=== PATIENT | female | born 1955 | race Caucasian/White ===

== ENCOUNTER 2017-03-19 10:47 | Emergency (ER) | payer BC ==
[2017-03-19 11:07] VITALS: BP 145/74
[2017-03-19] MEDS ORDERED: diphenhydrAMINE 50 MG/ML SDV IM ONE (11:15)
--- NOTE | 2017-03-19 11:16 | EDM.PDOC ---
ED HPI GENERAL MEDICAL PROBLEM - General Chief Complaint: General Stated Complaint: Mouth Numbness, Palpatations Time Seen by Provider: 03/19/17 11:00 Source of Information: Reports: Patient History Limitations: Reports: No Limitations - History of Present Illness INITIAL COMMENTS - FREE TEXT/NARRATIVE: Patient is a 62-year-old female who was seen in the ER not feeling well, states that she was working at [employer] and developed numbness allan orally, tachycardia patient was sent to our ER for evaluation at this time patient states that she went in to see her primary provider with generalized muscle aches not feeling well she was worked up and noted that her AMA was elevated and was started on steroids prednisone 25 mg daily for 5 days this was the only new medication given at this time we feel that this is an allergic reaction to the medication we'll go ahead and stop it. Benadryl 50 IM for symptom control send her home to rest for the next 24-48 hours if things get worse patient is to return to the ER Onset: Today Duration: Hour(s): Location: Reports: Generalized Quality: Reports: Ache, Throbbing Severity: Moderate - Related Data Allergies Allergy/AdvReac Type Severity Reaction Status Date / Time meperidine [From Demerol] Allergy Nausea Verified 03/19/17 10:55 morphine Allergy Anaphylactic Verified 03/19/17 10:55 Shock Home Meds: Home Meds Lisinopril/Hydrochlorothiazide [Lisinopril-Hctz 20-12.5 mg Tab] 0.5 tab PO DAILY 02/11/16 [History] Metoprolol Tartrate [Metoprolol Tartrate] 25 mg PO DAILY 02/11/16 [History] atorvaSTATin Calcium [Atorvastatin Calcium] 10 mg PO DAILY 02/11/16 [History] diphenhydrAMINE [Benadryl] 50 mg IM ONETIME #1 sdv 03/19/17 [Rx] predniSONE [Prednisone] 5 mg PO DAILY 03/19/17 [History] predniSONE [Prednisone] 20 mg PO DAILY 03/19/17 [History] Past Medical History HEENT History: Reports: Impaired Vision Cardiovascular History: Reports: Arrhythmia Gastrointestinal History: Reports: Cholelithiasis, Other (See Below) Other Gastrointestinal History: States that she has had a colonoscopy and the Dr told her that she had a long colon. Genitourinary History: Reports: Other (See Below) Other Genitourinary History: had bladder surgery - Past Surgical History Female Surgical History: Reports: Hysterectomy, Other (See Below) Musculoskeletal Surgical History: Reports: Carpal Tunnel, Other (See Below) Social & Family History - Family History Family Medical History: Unobtainable - Tobacco Use Smoking Status *Q: Never Smoker Second Hand Smoke Exposure: No - Recreational Drug Use Recreational Drug Use: No ED ROS GENERAL - Review of Systems Review Of Systems: See Below Constitutional: Reports: No Symptoms HEENT: Reports: No Symptoms Respiratory: Reports: No Symptoms Cardiovascular: Reports: No Symptoms Endocrine: Reports: No Symptoms GI/Abdominal: Reports: No Symptoms : Reports: No Symptoms Musculoskeletal: Reports: No Symptoms Skin: Reports: No Symptoms Neurological: Reports: No Symptoms Psychiatric: Reports: No Symptoms Hematologic/Lymphatic: Reports: No Symptoms Immunologic: Reports: No Symptoms ED EXAM, GENERAL - Physical Exam Exam: See Below Exam Limited By: No Limitations General Appearance: Alert, WD/WN, No Apparent Distress Ears: Normal External Exam, Normal Canal, Hearing Grossly Normal, Normal TMs Nose: Normal Inspection, Normal Mucosa, No Blood Throat/Mouth: Normal Inspection, Normal Lips, Normal Teeth, Normal Gums, Normal Oropharynx, Normal Voice, No Airway Compromise Head: Atraumatic, Normocephalic Neck: Normal Inspection, Supple, Non-Tender, Full Range of Motion Respiratory/Chest: No Respiratory Distress, Lungs Clear, Normal Breath Sounds, No Accessory Muscle Use, Chest Non-Tender Cardiovascular: Normal Peripheral Pulses, Regular Rate, Rhythm, No Edema, No Gallop, No JVD, No Murmur, No Rub GI/Abdominal: Normal Bowel Sounds, Soft, Non-Tender, No Mass (Female) Exam: Deferred Rectal (Female) Exam: Deferred Back Exam: Normal Inspection, Full Range of Motion, Muscle Spasm Extremities: Normal Inspection, Normal Range of Motion, Non-Tender, No Pedal Edema, Normal Capillary Refill, Arm Pain Neurological: Alert, Oriented, CN II-XII Intact, Normal Cognition, Normal Gait, Normal Reflexes, No Motor/Sensory Deficits Psychiatric: Normal Affect, Normal Mood Skin Exam: Warm, Dry, Intact, Normal Color, No Rash Course - Vital Signs Last Recorded V/S: Last Vital Signs Temp 97.7 F 03/19/17 10:50 Pulse 75 03/19/17 10:50 Resp 17 03/19/17 10:50 BP 145/74 H 03/19/17 10:50 Pulse Ox 100 03/19/17 10:50 - Orders/Labs/Meds Labs: Laboratory Tests 03/19/17 03/19/17 Range/Units 11:20 11:20 WBC 9.4 (4.0-10.2) K/uL RBC 4.44 (3.77-5.09) M/uL Hgb 12.9 (11.7-15.5) g/dL Hct 38.5 (34.0-46.0) % MCV 86.7 (84.0-98.0) fL MCH 29.1 (28.2-33.3) pg MCHC 33.5 (31.7-36.0) g/dL RDW 13.1 (11.2-14.1) % Plt Count 253 (150-350) K/uL Neut % (Auto) 85.0 H (45.0-80.0) % Lymph % (Auto) 11.9 (10.0-50.0) % [place] % (Auto) 2.8 (2.0-14.0) % Eos % (Auto) 0.1 (0.0-5.0) % Baso % (Auto) 0.2 (0.0-2.0) % Neut # (Auto) 7.95 H (1.40-7.00) K/uL Lymph # (Auto) 1.11 (0.50-3.50) K/uL [place] # (Auto) 0.26 (0.00-1.00) K/uL Eos # (Auto) 0.01 (0.00-0.50) K/uL Baso # (Auto) 0.02 (0.00-0.20) K/uL Sodium 139 (136-145) mmol/L Potassium 4.3 (3.5-5.1) mmol/L Chloride 103 (98-107) mmol/L Carbon Dioxide 24.3 (21.0-32.0) mmol/L BUN 19 H (7-18) mg/dL Creatinine 0.62 (0.51-1.17) mg/dL Est Cr Clr Drug Dosing 83.32 mL/min Estimated GFR (MDRD) > 60 mL/min Glucose 133 H (74-106) mg/dL Calcium 9.5 (8.5-10.1) mg/dL C-Reactive Protein < 0.1 (<=0.9) mg/dL Meds: Medications Discontinued Medications Generic Name Dose Route Start Last Admin Trade Name Li PRN Reason Stop Dose Admin Diphenhydramine HCl 50 mg 03/19/17 11:15 03/19/17 11:30 Benadryl IM 03/19/17 11:16 50 mg ONETIME ONE Administration Departure - Departure Time of Disposition: 12:19 Disposition: Home, Self-Care 01 Condition: Good Clinical Impression: Adverse drug reaction - Discharge Information Prescriptions: diphenhydrAMINE [Benadryl] 50 mg IM ONETIME #1 sdv Instructions: Diphenhydramine injection, Drug Allergy Referrals: Mary Mascorro PA-C [Primary Care Provider] - Forms: ED Department Discharge Additional Instructions: You make take over the counter Benadryl 25 mg po every 6 hours for allergic reaction symptoms. You may take the 1st dose around 5:30 pm this evening due to having an injection of Benadryl in the emergency room. If you have any shortness of breath, trouble breathing or swallowing return to ER immediately. Follow-up with your Primary Care Provider for a referral to [facility] as soon as possible. - Problem List & Annotations (1) Adverse drug reaction SNOMED Code(s): 80176505 Code(s): T88.7XXA - UNSP ADVERSE EFFECT OF DRUG OR MEDICAMENT, INIT ENCNTR Status: Acute Current Visit: No (2) Adverse drug reaction to adrenergic neurone blocking agent SNOMED Code(s): 459728433 Code(s): T44.8X5A - ADVERSE EFFECT OF CENTR-ACTING/[id number] AGNT, INIT Status: Acute Current Visit: Yes Annotation/Comment:: At this time prednisone was discontinued Benadryl was given IM can resume Benadryl 50 mg by mouth every 6 hours at home follow-up with primary Qualifiers: Encounter type: initial encounter Qualified Code(s): T44.8X5A - Adverse effect of centrally-acting and dihxzkoihw-fvooab-zqnqhhxr agents, initial encounter - Problem List Review Problem List Initiated/Reviewed/Updated: Yes - Assessment/Plan Assessment:: Adverse drug reaction adverse reaction Plan: Benadryl 50 IM will be given Plan at this time patient will be sent home on Benadryl 25 to 50 mg every 6 hours as needed
[2017-03-19 11:40] LABS: CHLORIDE,CL 103 mmol/L (98-107); SODIUM,NA 139 mmol/L (136-145)
== END 2017-03-19 12:20 | disposition home or self-care (01) ==
LOC: LL.ED 10:47
DX: R20.0 Anesthesia of skin (principal); R00.0 Tachycardia, unspecified; T44.8X5A Adverse effect of centrally-acting and adrenergic-neuron-blocking agents, initial encounter; Z88.5 Allergy status to narcotic agent; Z88.8 Allergy status to other drugs, medicaments and biological substances; Z79.899 Other long term (current) drug therapy
CPT/HCPCS: 36415; 80048; 85025; 86140; 96372; 99283; J1200

== ENCOUNTER 2018-02-05 10:44 | Emergency (ER) | payer BC ==
[2018-02-05] MEDS ORDERED: diphenhydrAMINE 50 MG/ML SDV IVPUSH ONE (10:49)
[2018-02-05] MEDS ORDERED: Sodium Chloride 0.9% 1,000 ML IV SCH (11:00)
[2018-02-05 11:17] LABS: CHLORIDE,CL 104 mmol/L (98-107); SODIUM,NA 139 mmol/L (136-145)
--- NOTE | 2018-02-05 11:26 | EDM.PDOC ---
ED HPI GENERAL MEDICAL PROBLEM - General Chief Complaint: Allergic Reaction Stated Complaint: allergic reaction Time Seen by Provider: 02/05/18 10:45 Source of Information: Reports: Patient, EMS History Limitations: Reports: No Limitations, Respiratory Distress - History of Present Illness INITIAL COMMENTS - FREE TEXT/NARRATIVE: Patient is a 63-year-old who was found lying in her driveway seen by first responders initially O2 sats was 70% on room air bumped up to 99 on nonrebreather paramedics were called to intercept secondary to allergic reaction patient was given EpiPen IV started Benadryl 50 and transfer to [place] on arrival patient was alert saturations were at 100% and responded appropriately to commands. Patient has a long history of allergic reactions especially to narcotics prednisone nonsteroidals Onset: Sudden Duration: Minutes:, Improving Location: Reports: Generalized (Hives) Quality: Reports: Ache Severity: Severe Improves with: Reports: Medication Worsens with: Reports: None Context: Reports: Other (Allergic reaction) - Related Data Allergies Allergy/AdvReac Type Severity Reaction Status Date / Time meperidine [From Demerol] Allergy Nausea Verified 02/05/18 10:46 morphine Allergy Anaphylactic Verified 02/05/18 10:46 Shock NSAIDS (Non-Steroidal Allergy Other Verified 02/05/18 10:46 Anti-Inflamma prednisone Allergy Excitabilit Verified 02/05/18 10:46 y Home Meds: Home Meds Lisinopril/Hydrochlorothiazide [Lisinopril-Hctz 20-12.5 mg Tab] 0.5 tab PO DAILY 02/11/16 [History] Metoprolol Tartrate 25 mg PO DAILY 02/11/16 [History] atorvaSTATin Calcium [Atorvastatin Calcium] 10 mg PO DAILY 02/11/16 [History] diphenhydrAMINE [Benadryl] 50 mg IM ONETIME #1 sdv 03/19/17 [Rx] predniSONE [Prednisone] 5 mg PO DAILY 03/19/17 [History] predniSONE [Prednisone] 20 mg PO DAILY 03/19/17 [History] Past Medical History HEENT History: Reports: Impaired Vision Cardiovascular History: Reports: Arrhythmia Gastrointestinal History: Reports: Cholelithiasis, Other (See Below) Other Gastrointestinal History: States that she has had a colonoscopy and the Dr told her that she had a long colon. Genitourinary History: Reports: Other (See Below) Other Genitourinary History: had bladder surgery - Past Surgical History Female Surgical History: Reports: Hysterectomy, Other (See Below) Musculoskeletal Surgical History: Reports: Carpal Tunnel, Other (See Below) Social & Family History - Family History Family Medical History: Unobtainable ED ROS ALLERGIC REACTION - Review of Systems Review Of Systems: See Below Constitutional: Reports: Weakness, Fatigue HEENT: Reports: No Symptoms Respiratory: Reports: Shortness of Breath, Wheezing Cardiovascular: Reports: No Symptoms Endocrine: Reports: No Symptoms GI/Abdominal: Reports: No Symptoms Musculoskeletal: Reports: No Symptoms Skin: Reports: Pruritis, Other (Hives) Neurological: Reports: No Symptoms Psychiatric: Reports: No Symptoms Hematologic/Lymphatic: Reports: No Symptoms Immunologic: Reports: No Symptoms ED EXAM GENERAL NO PERIP PULSE - Physical Exam Exam: See Below Exam Limited By: No Limitations General Appearance: Alert, WD/WN, No Apparent Distress Ears: Normal External Exam, Normal Canal, Hearing Grossly Normal, Normal TMs Nose: Normal Inspection, Normal Mucosa, No Blood Throat/Mouth: Normal Inspection, Normal Lips, Normal Teeth, Normal Gums, Normal Oropharynx, Normal Voice, No Airway Compromise Head: Atraumatic, Normocephalic Neck: Normal Inspection, Supple, Non-Tender, Full Range of Motion Respiratory/Chest: Decreased Breath Sounds, Wheezing (Expiratory) Cardiovascular: Normal Peripheral Pulses, Regular Rate, Rhythm, No Edema, No Gallop, No JVD, No Murmur, No Rub GI/Abdominal: Normal Bowel Sounds, Soft, Non-Tender, No Organomegaly, No Distention, No Abnormal Bruit, No Mass (Female) Exam: Normal External Exam, Normal Speculum Exam, Normal Bimanual Exam Extremities: Normal Inspection, Normal Range of Motion, Non-Tender, Normal Capillary Refill, No Pedal Edema Neurological: Alert, Oriented, CN II-XII Intact, Normal Cognition, Normal Gait, Normal Reflexes, No Motor/Sensory Deficits Skin Exam: Rash Lymphatic: No Adenopathy Course - Vital Signs Last Recorded V/S: Last Vital Signs Temp 97.4 F 02/05/18 10:45 Pulse 67 02/05/18 11:40 Resp 16 02/05/18 11:40 BP 107/61 02/05/18 11:40 Pulse Ox 94 L 02/05/18 11:40 - Orders/Labs/Meds Orders: Active Orders 24 hr Category Date Time Status Chest 1V Frontal [CR] Stat Exams 02/05/18 10:53 Taken Sodium Chloride 0.9% @ 150 MLS/HR (1000ml) Med 02/05/18 11:00 Ordered Sodium Chloride 0.9% [Normal Saline] 1,000 ml IV ASDIRECTED Medication Orders Sodium Chloride (Normal Saline) 1,000 mls @ 150 mls/hr IV ASDIRECTED JANNETTE Last Admin: 02/05/18 10:50 Dose: 150 mls/hr Labs: Laboratory Tests 02/05/18 02/05/18 Range/Units 11:00 11:00 WBC 17.9 H (4.0-10.2) K/uL RBC 5.30 H (3.77-5.09) M/uL Hgb 15.1 D (11.7-15.5) g/dL Hct 44.9 (34.0-46.0) % MCV 84.7 (84.0-98.0) fL MCH 28.5 (28.2-33.3) pg MCHC 33.6 (31.7-36.0) g/dL RDW 13.6 (11.2-14.1) % Plt Count 239 (150-350) K/uL Neut % (Auto) 81.0 H (45.0-80.0) % Lymph % (Auto) 13.6 (10.0-50.0) % [place] % (Auto) 5.1 (2.0-14.0) % Eos % (Auto) 0.2 (0.0-5.0) % Baso % (Auto) 0.1 (0.0-2.0) % Neut # (Auto) 14.50 H (1.40-7.00) K/uL Lymph # (Auto) 2.43 (0.50-3.50) K/uL [place] # (Auto) 0.92 (0.00-1.00) K/uL Eos # (Auto) 0.03 (0.00-0.50) K/uL Baso # (Auto) 0.02 (0.00-0.20) K/uL Sodium 139 (136-145) mmol/L Potassium 4.1 (3.5-5.1) mmol/L Chloride 104 (98-107) mmol/L Carbon Dioxide 19.7 L (21.0-32.0) mmol/L BUN 23 H (7-18) mg/dL Creatinine 0.87 (0.51-1.17) mg/dL Est Cr Clr Drug Dosing 56.17 mL/min Estimated GFR (MDRD) > 60 mL/min Glucose 170 H (74-106) mg/dL Calcium 9.6 (8.5-10.1) mg/dL Meds: Medications Generic Name Dose Route Start Last Admin Trade Name Freq PRN Reason Stop Dose Admin Sodium Chloride 1,000 mls @ 150 mls/hr 02/05/18 11:00 02/05/18 10:50 Normal Saline IV 150 mls/hr ASDIRECTED JANNETTE Administration Discontinued Medications Generic Name Dose Route Start Last Admin Trade Name Freq PRN Reason Stop Dose Admin Diphenhydramine HCl 50 mg 02/05/18 10:49 02/05/18 10:53 Benadryl IVPUSH 02/05/18 10:50 50 mg ONETIME ONE Administration Departure - Departure Time of Disposition: 11:59 Disposition: Home, Self-Care 01 Clinical Impression: Allergic reaction caused by a drug Qualifiers: Encounter type: subsequent encounter Qualified Code(s): T78.40XD - Allergy, unspecified, subsequent encounter - Discharge Information *PRESCRIPTION DRUG MONITORING PROGRAM REVIEWED*: No *COPY OF PRESCRIPTION DRUG MONITORING REPORT IN PATIENT BESSIE: No Instructions: Allergies, Adult, [id number] - My Orders Last 24 Hours: My Active Orders 02/05/18 10:53 Chest 1V Frontal [CR] Stat 02/05/18 11:00 Sodium Chloride 0.9% @ 150 MLS/HR (1000ml) Sodium Chloride 0.9% [Normal Saline] 1,000 ml IV ASDIRECTED - Assessment/Plan Last 24 Hours: My Active Orders 02/05/18 10:53 Chest 1V Frontal [CR] Stat 02/05/18 11:00 Sodium Chloride 0.9% @ 150 MLS/HR (1000ml) Sodium Chloride 0.9% [Normal Saline] 1,000 ml IV ASDIRECTED
[2018-02-05 12:05] VITALS: BP 105/59
--- NOTE | 2018-02-05 12:07 | EDM.PDOC ---
ED HPI GENERAL MEDICAL PROBLEM - General Chief Complaint: Allergic Reaction Stated Complaint: allergic reaction Time Seen by Provider: 02/05/18 10:45 Source of Information: Reports: Patient, EMS History Limitations: Reports: No Limitations, Respiratory Distress - History of Present Illness INITIAL COMMENTS - FREE TEXT/NARRATIVE: Patient is a 63-year-old who was found lying in her driveway seen by first responders initially O2 sats was 70% on room air bumped up to 99 on nonrebreather paramedics were called to intercept secondary to allergic reaction patient was given EpiPen IV started Benadryl 50 and transfer to [place] on arrival patient was alert saturations were at 100% and responded appropriately to commands. Patient has a long history of allergic reactions especially to narcotics prednisone nonsteroidals Onset: Sudden Duration: Minutes:, Improving Location: Reports: Generalized (Hives) Quality: Reports: Ache Severity: Severe Improves with: Reports: Medication Worsens with: Reports: None Context: Reports: Other (Allergic reaction) Treatments SENIOR OFFICER: Reports: Other (see below) Other Treatments SENIOR OFFICER: EpiPen, Benadryl IVP 50 mg, Zofran IVP - Related Data Allergies Allergy/AdvReac Type Severity Reaction Status Date / Time meperidine [From Demerol] Allergy Nausea Verified 02/05/18 10:46 morphine Allergy Anaphylactic Verified 02/05/18 10:46 Shock NSAIDS (Non-Steroidal Allergy Other Verified 02/05/18 10:46 Anti-Inflamma prednisone Allergy Excitabilit Verified 02/05/18 10:46 y Home Meds: Home Meds Lisinopril/Hydrochlorothiazide [Lisinopril-Hctz 20-12.5 mg Tab] 0.5 tab PO DAILY 02/11/16 [History] Metoprolol Tartrate 25 mg PO DAILY 02/11/16 [History] atorvaSTATin Calcium [Atorvastatin Calcium] 10 mg PO DAILY 02/11/16 [History] diphenhydrAMINE [Benadryl] 50 mg IM ONETIME #1 sdv 03/19/17 [Rx] predniSONE [Prednisone] 5 mg PO DAILY 03/19/17 [History] predniSONE [Prednisone] 20 mg PO DAILY 03/19/17 [History] EPINEPHrine [Epipen 2-Tee] 0.3 mg IJ ASDIRECTED #2 ml 02/05/18 [Rx] diphenhydrAMINE [Benadryl] 50 mg PO Q6HR PRN 5 Days #40 cap 02/05/18 [Rx] Past Medical History HEENT History: Reports: Impaired Vision Cardiovascular History: Reports: Arrhythmia Gastrointestinal History: Reports: Cholelithiasis, Other (See Below) Other Gastrointestinal History: States that she has had a colonoscopy and the Dr told her that she had a long colon. Genitourinary History: Reports: Other (See Below) Other Genitourinary History: had bladder surgery - Past Surgical History Female Surgical History: Reports: Hysterectomy, Other (See Below) Musculoskeletal Surgical History: Reports: Carpal Tunnel, Other (See Below) Social & Family History - Family History Family Medical History: Unobtainable - Tobacco Use Smoking Status *Q: Never Smoker ED ROS ALLERGIC REACTION - Review of Systems Review Of Systems: See Below Constitutional: Reports: Weakness, Fatigue Respiratory: Reports: Shortness of Breath, Wheezing Endocrine: Reports: No Symptoms GI/Abdominal: Reports: No Symptoms Musculoskeletal: Reports: No Symptoms Skin: Reports: Pruritis, Other (Hives) Neurological: Reports: No Symptoms Hematologic/Lymphatic: Reports: No Symptoms Immunologic: Reports: No Symptoms ED EXAM GENERAL NO PERIP PULSE - Physical Exam Exam: See Below Course - Vital Signs Last Recorded V/S: Last Vital Signs Temp 97.4 F 02/05/18 10:45 Pulse 70 02/05/18 12:05 Resp 12 02/05/18 12:05 BP 105/59 L 02/05/18 12:05 Pulse Ox 92 L 02/05/18 12:05 - Orders/Labs/Meds Orders: Active Orders 24 hr Category Date Time Status Chest 1V Frontal [CR] Stat Exams 02/05/18 10:53 Taken Sodium Chloride 0.9% @ 150 MLS/HR (1000ml) Med 02/05/18 11:00 Ordered Sodium Chloride 0.9% [Normal Saline] 1,000 ml IV ASDIRECTED Medication Orders Sodium Chloride (Normal Saline) 1,000 mls @ 150 mls/hr IV ASDIRECTED JANNETTE Last Admin: 02/05/18 10:50 Dose: 150 mls/hr Labs: Laboratory Tests 02/05/18 02/05/18 Range/Units 11:00 11:00 WBC 17.9 H (4.0-10.2) K/uL RBC 5.30 H (3.77-5.09) M/uL Hgb 15.1 D (11.7-15.5) g/dL Hct 44.9 (34.0-46.0) % MCV 84.7 (84.0-98.0) fL MCH 28.5 (28.2-33.3) pg MCHC 33.6 (31.7-36.0) g/dL RDW 13.6 (11.2-14.1) % Plt Count 239 (150-350) K/uL Neut % (Auto) 81.0 H (45.0-80.0) % Lymph % (Auto) 13.6 (10.0-50.0) % [place] % (Auto) 5.1 (2.0-14.0) % Eos % (Auto) 0.2 (0.0-5.0) % Baso % (Auto) 0.1 (0.0-2.0) % Neut # (Auto) 14.50 H (1.40-7.00) K/uL Lymph # (Auto) 2.43 (0.50-3.50) K/uL [place] # (Auto) 0.92 (0.00-1.00) K/uL Eos # (Auto) 0.03 (0.00-0.50) K/uL Baso # (Auto) 0.02 (0.00-0.20) K/uL Sodium 139 (136-145) mmol/L Potassium 4.1 (3.5-5.1) mmol/L Chloride 104 (98-107) mmol/L Carbon Dioxide 19.7 L (21.0-32.0) mmol/L BUN 23 H (7-18) mg/dL Creatinine 0.87 (0.51-1.17) mg/dL Est Cr Clr Drug Dosing 56.17 mL/min Estimated GFR (MDRD) > 60 mL/min Glucose 170 H (74-106) mg/dL Calcium 9.6 (8.5-10.1) mg/dL Meds: Medications Generic Name Dose Route Start Last Admin Trade Name Freq PRN Reason Stop Dose Admin Sodium Chloride 1,000 mls @ 150 mls/hr 02/05/18 11:00 02/05/18 10:50 Normal Saline IV 150 mls/hr ASDIRECTED JANNETTE Administration Discontinued Medications Generic Name Dose Route Start Last Admin Trade Name Freq PRN Reason Stop Dose Admin Diphenhydramine HCl 50 mg 02/05/18 10:49 02/05/18 10:53 Benadryl IVPUSH 02/05/18 10:50 50 mg ONETIME ONE Administration Departure - Departure Time of Disposition: 12:07 Disposition: Home, Self-Care 01 Clinical Impression: Allergic reaction caused by a drug Qualifiers: Encounter type: subsequent encounter Qualified Code(s): T78.40XD - Allergy, unspecified, subsequent encounter - Discharge Information *PRESCRIPTION DRUG MONITORING PROGRAM REVIEWED*: No *COPY OF PRESCRIPTION DRUG MONITORING REPORT IN PATIENT BESSIE: No Prescriptions: diphenhydrAMINE [Benadryl] 50 mg PO Q6HR PRN 5 Days #40 cap PRN Reason: Allergies EPINEPHrine [Epipen 2-Tee] 0.3 mg IJ ASDIRECTED #2 ml Instructions: Allergies, Adult, [id number] Referrals: PCP,Unknown [Primary Care Provider] - Care Plan Goals: Patient will be sent home on EpiPen 21 for the house and one for her purse she is to use it at the onset of an allergic reaction also Benadryl 50 one tablet every 6 hours 5 days 40 tablets were given for 2 cycles with refills - My Orders Last 24 Hours: My Active Orders 02/05/18 10:53 Chest 1V Frontal [CR] Stat 02/05/18 11:00 Sodium Chloride 0.9% @ 150 MLS/HR (1000ml) Sodium Chloride 0.9% [Normal Saline] 1,000 ml IV ASDIRECTED - Assessment/Plan Last 24 Hours: My Active Orders 02/05/18 10:53 Chest 1V Frontal [CR] Stat 02/05/18 11:00 Sodium Chloride 0.9% @ 150 MLS/HR (1000ml) Sodium Chloride 0.9% [Normal Saline] 1,000 ml IV ASDIRECTED
== END 2018-02-05 12:30 | disposition home or self-care (01) ==
LOC: LL.ED 10:44
DX: L50.0 Allergic urticaria (principal); T50.905A Adverse effect of unspecified drugs, medicaments and biological substances, initial encounter; Z88.5 Allergy status to narcotic agent; Z88.8 Allergy status to other drugs, medicaments and biological substances; Z79.899 Other long term (current) drug therapy
CPT/HCPCS: 36415; 71045; 80048; 85025; 96361; 96374; 99285; J1200; J7030

== ENCOUNTER 2018-07-18 12:48 | Emergency (ER) | payer BC ==
[2018-07-18] MEDS ORDERED: Ondansetron 4 MG/2 ML SDV IVPUSH ONE (13:12)
[2018-07-18] MEDS ORDERED: Sodium Chloride 0.9% 1,000 ML IV ONE (13:13)
[2018-07-18 13:16] VITALS: BP 146/83
[2018-07-18] MEDS ORDERED: Meclizine 25 MG Tab PO ONE (13:46)
--- NOTE | 2018-07-18 13:57 | EDM.PDOC ---
ED HPI GENERAL MEDICAL PROBLEM - General Chief Complaint: Gastrointestinal Problem Stated Complaint: Vertigo Time Seen by Provider: 07/18/18 13:12 Source of Information: Reports: Patient History Limitations: Reports: No Limitations - History of Present Illness INITIAL COMMENTS - FREE TEXT/NARRATIVE: Patient woke this morning to find that she had sudden severe dizziness/room spinning sensation that was worse with head movement. Nausea/emesis present. Has had this in past, last episode 3-4 years ago. Has been severe enough to require short term admission. CT performed the last time, negative for acute changes. No specific trigger for her events. Denies hitting head/falls/trauma/med changes. No recent illnesses/URIs Denies pain/headache, ear pain, sinus changes/sore throat. No respiratory changes/SOB/chest pain/palpitations. No bowel changes/hematochezia, hematemesis. No dysuria/UTI complaints. No focal neuro changes/deficits - Related Data Allergies Allergy/AdvReac Type Severity Reaction Status Date / Time celecoxib [From Celebrex] Allergy Anaphylactic Verified 07/18/18 12:53 Shock diclofenac Allergy Anaphylactic Verified 07/18/18 12:53 Shock meperidine [From Demerol] Allergy Nausea Verified 02/05/18 10:46 morphine Allergy Anaphylactic Verified 02/05/18 10:46 Shock NSAIDS (Non-Steroidal Allergy Other Verified 02/05/18 10:46 Anti-Inflamma prednisone Allergy Excitabilit Verified 02/05/18 10:46 y Home Meds: Home Meds Lisinopril/Hydrochlorothiazide [Lisinopril-Hctz 20-12.5 mg Tab] 0.5 tab PO DAILY 02/11/16 [History] Metoprolol Tartrate 25 mg PO DAILY 02/11/16 [History] atorvaSTATin Calcium [Atorvastatin Calcium] 10 mg PO DAILY 02/11/16 [History] EPINEPHrine [Epipen 2-Tee] 0.3 mg IJ ASDIRECTED #2 ml 02/05/18 [Rx] Calcium Carbonate [Calcium] 1,000 mg PO DAILY 07/18/18 [History] Ergocalciferol (Vitamin D2) [Vitamin D2] 2,000 unit PO DAILY 07/18/18 [History] Escitalopram [Lexapro] 10 mg PO DAILY 07/18/18 [History] Magnesium Oxide [Magnesium] 400 mg PO DAILY 07/18/18 [History] Meclizine [Antivert] 25 mg PO Q6H PRN #30 tab 07/18/18 [Rx] Ondansetron [Zofran ODT] 4 mg PO Q6H PRN #10 tab.dis 07/18/18 [Rx] Past Medical History HEENT History: Reports: Impaired Vision Cardiovascular History: Reports: Arrhythmia Gastrointestinal History: Reports: Cholelithiasis, Other (See Below) Other Gastrointestinal History: States that she has had a colonoscopy and the Dr told her that she had a long colon. Genitourinary History: Reports: Other (See Below) Other Genitourinary History: had bladder surgery Neurological History: Reports: Vertigo - Past Surgical History Female Surgical History: Reports: Hysterectomy, Other (See Below) Musculoskeletal Surgical History: Reports: Carpal Tunnel, Other (See Below) Social & Family History - Family History Family Medical History: Unobtainable - Tobacco Use Smoking Status *Q: Never Smoker - Caffeine Use Caffeine Use: Reports: None - Recreational Drug Use Recreational Drug Use: No ED ROS GENERAL - Review of Systems Review Of Systems: ROS reveals no pertinent complaints other than HPI. ED EXAM, GENERAL - Physical Exam Exam: See Below Exam Limited By: No Limitations General Appearance: Alert, Mild Distress, Obese Eye Exam: Bilateral Eye: EOMI, PERRL Ears: Normal External Exam, Normal Canal, Hearing Grossly Normal, Normal TMs Nose: Normal Inspection Throat/Mouth: Normal Inspection, Normal Lips, Normal Voice, No Airway Compromise Head: Atraumatic, Normocephalic, Other (head rotation induced worsening sensation vertigo, but no nystagmus observed. ) Neck: Normal Inspection, Supple, Non-Tender, Full Range of Motion Respiratory/Chest: No Respiratory Distress, Lungs Clear, Normal Breath Sounds, No Accessory Muscle Use Cardiovascular: Regular Rate, Rhythm, No Murmur GI/Abdominal: Normal Bowel Sounds, Soft, Non-Tender, No Distention (Female) Exam: Deferred Rectal (Female) Exam: Deferred Back Exam: Normal Inspection Extremities: Normal Inspection, Normal Capillary Refill Neurological: Alert, Oriented, CN II-XII Intact, Normal Cognition, Normal Gait, No Motor/Sensory Deficits Psychiatric: Normal Affect, Normal Mood Skin Exam: Warm, Dry, Intact, Normal Color Course - Vital Signs Last Recorded V/S: Last Vital Signs Temp 36.7 C 07/18/18 13:15 Pulse 68 07/18/18 13:15 Resp 15 07/18/18 13:15 BP 146/83 H 07/18/18 13:15 Pulse Ox 98 07/18/18 13:15 - Orders/Labs/Meds Orders: Active Orders 24 hr Category Date Time Status Head wo Cont [CT] Stat Exams 07/18/18 14:29 Ordered CULTURE URINE [RM] Routine Lab 07/18/18 15:23 Ordered Labs: Laboratory Tests 07/18/18 07/18/18 07/18/18 Range/Units 13:40 13:45 13:45 WBC 12.9 H (4.0-10.2) K/uL RBC 4.78 (3.77-5.09) M/uL Hgb 13.9 (11.7-15.5) g/dL Hct 41.1 (34.0-46.0) % MCV 86.0 (84.0-98.0) fL MCH 29.1 (28.2-33.3) pg MCHC 33.8 (31.7-36.0) g/dL RDW 13.5 (11.2-14.1) % Plt Count 224 (150-350) K/uL Neut % (Auto) 79.7 (45.0-80.0) % Lymph % (Auto) 15.0 (10.0-50.0) % Elk % (Auto) 4.5 (2.0-14.0) % Eos % (Auto) 0.6 (0.0-5.0) % Baso % (Auto) 0.2 (0.0-2.0) % Neut # (Auto) 10.23 H (1.40-7.00) K/uL Lymph # (Auto) 1.93 (0.50-3.50) K/uL Elk # (Auto) 0.58 (0.00-1.00) K/uL Eos # (Auto) 0.08 (0.00-0.50) K/uL Baso # (Auto) 0.03 (0.00-0.20) K/uL Sodium 138 (136-145) mmol/L Potassium 4.4 (3.5-5.1) mmol/L Chloride 102 (98-107) mmol/L Carbon Dioxide 26.0 (21.0-32.0) mmol/L BUN 16 (7-18) mg/dL Creatinine 0.67 (0.51-1.17) mg/dL Est Cr Clr Drug Dosing 76.14 mL/min Estimated GFR (MDRD) > 60 mL/min Glucose 153 H (74-106) mg/dL Calcium 9.2 (8.5-10.1) mg/dL Magnesium 2.1 (1.8-2.4) mg/dL Total Bilirubin 0.3 (0.2-1.0) mg/dL AST 27 (15-37) U/L ALT 41 (12-78) U/L Alkaline Phosphatase 100 (46-116) IU/L Total Protein 7.6 (6.4-8.2) g/dL Albumin 3.8 (3.4-5.0) g/dL Specimen Type Urinblad Urine Color Yellow Urine Appearance Slightly cloudy Urine pH 7.5 (5.0-9.0) Ur Specific Isabella 1.015 (1.005-1.030) Urine Protein 30 H (NEGATIVE) mg/dL Urine Glucose (UA) Negative (NEGATIVE) mg/dL Urine Ketones Negative (NEGATIVE) mg/dL Urine Occult Blood Negative (NEGATIVE) Urine Nitrite Negative (NEGATIVE) Urine Bilirubin Negative (NEGATIVE) Urine Urobilinogen 0.2 (0.2-1.0) E.U./dL Ur Leukocyte Esterase Small H (NEGATIVE) Urine RBC 0-5 /HPF Urine WBC 5-10 H /HPF Ur Epithelial Cells Moderate H /LPF Urine Bacteria Few (NONE TO FEW) /HPF Meds: Medications Discontinued Medications Generic Name Dose Route Start Last Admin Trade Name Freq PRN Reason Stop Dose Admin Sodium Chloride 1,000 mls @ 999 mls/hr 07/18/18 13:13 07/18/18 13:21 Normal Saline IV 07/18/18 14:13 999 mls/hr .BOLUS ONE Administration Meclizine HCl 25 mg 07/18/18 13:46 07/18/18 14:25 Antivert PO 07/18/18 13:47 25 mg ONETIME ONE Administration Ondansetron HCl 4 mg 07/18/18 13:12 07/18/18 13:21 Zofran IVPUSH 07/18/18 13:13 4 mg ONETIME ONE Administration - Radiology Interpretation Free Text/Narrative:: CT of head negative for acute changes. CT Results Date: 07/18/18 CT Results Time: 15:13 - Re-Assessments/Exams Free Text/Narrative Re-Assessment/Exam: WBC mildly elevated, glucose 150, UA showed trace WBCs. UC requested. Patient denies symptoms of UTI Patient received single liter NS bolus along with Zofran and Meclizine. Observed for an hour. CT of head performed/negative for acute changes. After patient allowed to rest, she was rechecked and felt improved. Ambulated by nursing staff and did well. Would like to go home and try to manage symptoms with Meclizine/Zofran. Precautions reviewed. To follow up as needed if symptoms do not improve by Saturday, or if she has sudden worsening symptoms. Departure - Departure Time of Disposition: 15:20 Disposition: Home, Self-Care 01 Condition: Good Clinical Impression: Vertigo - Discharge Information *PRESCRIPTION DRUG MONITORING PROGRAM REVIEWED*: Not Applicable *COPY OF PRESCRIPTION DRUG MONITORING REPORT IN PATIENT BESSIE: Not Applicable Prescriptions: Meclizine [Antivert] 25 mg PO Q6H PRN #30 tab PRN Reason: Dizziness Ondansetron [Zofran ODT] 4 mg PO Q6H PRN #10 tab.dis PRN Reason: Nausea Instructions: Meclizine tablets or capsules, Ondansetron injection, Vertigo, [id number] Referrals: Mary Mascorro PA-C [Primary Care Provider] - Forms: ED Department Discharge Additional Instructions: Rest, stay hydrated. Take the Zofran to help with nausea, and Meclizine to help with dizziness. Plan to take the Meclizine every 6 hours for the next 3 days before going to "as needed". We did send your urine in for culture as we noticed a few white cells in the sample. If there is any concern for infection when culture results are available we will contact you. Follow up as needed if symptoms have not improved by Saturday, or if they suddenly worsen. - My Orders Last 24 Hours: My Active Orders 07/18/18 14:29 Head wo Cont [CT] Stat 07/18/18 15:23 CULTURE URINE [RM] Routine - Assessment/Plan Last 24 Hours: My Active Orders 07/18/18 14:29 Head wo Cont [CT] Stat 07/18/18 15:23 CULTURE URINE [RM] Routine
[2018-07-18 14:00] LABS: CHLORIDE,CL 102 mmol/L (98-107); SODIUM,NA 138 mmol/L (136-145)
== END 2018-07-18 15:34 | disposition home or self-care (01) ==
LOC: LL.ED 12:48
DX: R42 Dizziness and giddiness (principal); Z79.899 Other long term (current) drug therapy; Z88.5 Allergy status to narcotic agent; Z88.8 Allergy status to other drugs, medicaments and biological substances; Z88.1 Allergy status to other antibiotic agents; Z88.6 Allergy status to analgesic agent
CPT/HCPCS: 36415; 70450; 80053; 81001; 83735; 85025; 87086; 96361; 96374; 99284-25; A9270-GY; J2405; J7030